=== PATIENT | female | born 1940 | race Caucasian/White ===

== ENCOUNTER → 2018-06-05 | Outpatient (CLI) | payer OTHER ==
[~2018-06-05] MED LIST: ACET325 PO; AMLO5 PO; ASPI81CH PO; ASPI81EC PO; ATOR40TA PO; BEANO PO; BISM300CH PO; BUME1 PO; BUME2 PO; BYSTOLIC PO; CALCA500CH PO; CHOL10002 PO; Cipro500 MG PO; Cranberry500 MG PO; FISH1000 PO; FURO40 PO; FURO80 PO; Flovent Diskus50 MCG; Gas-X125 MG PO; INS70/30PN SC; INS70/30PN SUBQ; INSULANPEN SC; LOPE2C PO; LORA1SY; Lantus100 UNIT/1 SC; METF500 PO; METO100ER PO; METO5A PO; MULT50L PO; MULVITMIND; MULVITMIND PO; NAPR500 PO; Novolin R100 UNIT/M; OMEP20ER PO; PHENY100ER PO; PIOG15 PO; POLY17UD PO; POTA10T PO; POTCHL10ER PO; PRAV20 PO; PRAV40 PO; PRIMATENE MIST; PROACE100 PO; PYRI100 PO; Prilosec20 MG PO; QVAR REDIHALE10.6 G1 IH; SIME80CH PO; TRAM50 PO; VALS80 PO; [UNRECOGNIZED DRUG - OTHER] PO
[2018-06-05 10:21] LABS: Source, Urine Catheter
[2018-06-05 11:05] LABS: Bilirubin, Urine Neg (Neg); Blood, Urine 1+ (Neg); Glucose Qualitative, Urine Neg (Neg); Ketones, Urine Neg (Neg); Leukocyte Esterase, Urine 3+ (Neg); Nitrite, Urine Neg (Neg); Protein, Urine Neg (Neg); Specific Gravity, Urine 1.015 (1.003-1.022); Urobilinogen, Urine NORM (Normal)
[2018-06-05 11:07] LABS: Appearance, Urine Hazy (Clear); Color, Urine Yellow (P-Yellow)
[2018-06-05 11:21] LABS: Bacteria Few /hpf; Red Blood Cells, Urine TNTC /hpf (0-2); Squamous Epithelial Cells Not Seen /hpf (Few); Yeast/Fungi Urine Mod /hpf
== END | disposition home or self-care (01) ==
LOC: LAB 10:19 → LAB SHORT 10:19
PROVIDERS: Family Medicine
DX: N39.0 Urinary tract infection, site not specified (principal)
CPT/HCPCS: 81001; 87086

== ENCOUNTER → 2018-07-02 | Outpatient (CLI) | payer OTHER ==
[2018-07-02 10:53] LABS: Source, Urine Catheter
[2018-07-02 11:00] LABS: Bilirubin, Urine Neg (Neg); Blood, Urine 1+ (Neg); Glucose Qualitative, Urine Neg (Neg); Ketones, Urine Neg (Neg); Leukocyte Esterase, Urine 1+ (Neg); Nitrite, Urine Neg (Neg); Protein, Urine Neg (Neg); Urobilinogen, Urine NORM (Normal)
[2018-07-02 11:09] LABS: Appearance, Urine Clear (Clear); Color, Urine Yellow (P-Yellow)
[2018-07-02 11:11] LABS: Bacteria Rare /hpf; Red Blood Cells, Urine 0-2 /hpf (0-2); Squamous Epithelial Cells Mod /hpf (Few)
== END | disposition home or self-care (01) ==
LOC: LAB 10:52 → LAB SHORT 10:52
PROVIDERS: Family Medicine
DX: N39.0 Urinary tract infection, site not specified (principal)
CPT/HCPCS: 81001; 87077; 87086; 87186

== ENCOUNTER 2018-07-14 15:26 | Emergency (ER) | payer OTHER ==
[~2018-07-14] VITALS: Ht 172.7 cm; Wt 136.1 kg
[~2018-07-14 15:26] MED LIST changes: -Gas-X125 MG PO; -LORA1SY; -QVAR REDIHALE10.6 G1 IH
[2018-07-14] MEDS ORDERED: Gas-X125 MG PO (15:41)
[2018-07-14] MEDS ORDERED: LORA1SY (15:45)
[2018-07-14] MEDS ORDERED: QVAR REDIHALE10.6 G1 IH (15:46)
== END 2018-07-14 17:27 | disposition left against medical advice (07) ==
LOC: ER 15:26
DX: M25.552 Pain in left hip (principal); M54.9 Dorsalgia, unspecified; W18.30XA Fall on same level, unspecified, initial encounter; Z88.8 Allergy status to other drugs, medicaments and biological substances; Z91.012 Allergy to eggs; Z88.1 Allergy status to other antibiotic agents; Z79.899 Other long term (current) drug therapy; Z79.82 Long term (current) use of aspirin; Z79.4 Long term (current) use of insulin; I11.0 Hypertensive heart disease with heart failure; I50.9 Heart failure, unspecified; E11.9 Type 2 diabetes mellitus without complications; D64.9 Anemia, unspecified; E78.5 Hyperlipidemia, unspecified; K21.9 Gastro-esophageal reflux disease without esophagitis
CPT/HCPCS: 99283

== ENCOUNTER 2018-09-01 16:22 | Emergency (ER) | payer OTHER ==
[~2018-09-01] VITALS: Ht 172.7 cm; Wt 137.4 kg
[~2018-09-01 16:22] MED LIST changes: +Gas-X125 MG PO; +LORA1SY; +QVAR REDIHALE10.6 G1 IH
[2018-09-01 17:03] LABS: BASOPHILS ABSOLUTE AUTO 0.03 K/mm3 (0.00-0.23); BASOPHILS PERCENT AUTO 0 % (0-2); EOSINOPHILS ABSOLUTE AUTO 0.34 K/mm3 (0.00-0.68); EOSINOPHILS PERCENT AUTO 4 % (0-6); Hematocrit 32.5 % (33.0-51.0); Hemoglobin 10.6 g/dL (11.5-16.0); IMMATURE GRAN ABSOLUTE AUTO 0.09 K/mm3 (0.00-0.10); IMMATURE GRAN PERCENT AUTO 1 % (0-1); LYMPHOCYTES ABSOLUTE AUTO 1.69 K/mm3 (0.84-5.20); LYMPHOCYTES PERCENT AUTO 18 % (21-46); MONOCYTES ABSOLUTE AUTO 0.99 K/mm3 (0.16-1.47); MONOCYTES PERCENT AUTO 11 % (4-13); Mean Corpuscular HGB 31.2 pg (26.0-34.0); Mean Corpuscular HGB Conc 32.6 g/dL (31.5-36.5); Mean Corpuscular Volume 96 fL (80-100); Mean Platelet Volume 10.4 fL (9.1-12.4); NEUTROPHILS ABSOLUTE AUTO 6.15 K/mm3 (1.96-9.15); NEUTROPHILS PERCENT AUTO 66 % (41-73); Platelet Count 205 K/mm3 (150-400); RDW Coefficient Variation 13.1 % (11.7-14.2); RDW Standard Deviation 46.4 fL (35.1-46.3); White Blood Cell Count 9.29 K/mm3 (4.00-11.30)
[2018-09-01 17:19] LABS: Alanine Aminotransfer (ALT/SGP 14 U/L (12-78); Albumin, Blood 2.7 g/dL (3.4-5.0); Albumin/Globulin Ratio 0.6 (0.8-1.8); Alk Phos 181 U/L (50-136); Anion Gap 4 mmol/L (6-16); Aspartate Aminotrans (AST/SGOT 15 U/L (12-37); Bilirubin, Total 0.3 mg/dL (0.1-1.0); Blood Urea Nitrogen 14 mg/dL (8-24); Bun/Creatinine Ratio 22.9 (12.0-20.0); CO2, Blood 33 mmol/L (21-32); Calcium, Blood 8.4 mg/dL (8.5-10.1); Chloride, Blood 96 mmol/L (98-108); Creatinine, Blood 0.61 mg/dL (0.40-1.00); Globulin, Blood 4.5 g/dL (2.2-4.0); Glomerular Filtration Rate >60 (60-); Glucose, Blood 204 mg/dL (70-99); Potassium, Blood 4.9 mmol/L (3.5-5.5); Sodium, Blood 133 mmol/L (136-145); Total Protein, Blood 7.2 g/dL (6.4-8.2)
[2018-09-01 18:26] LABS: Influenza A Negative (NEGATIVE); Influenza B Negative (NEGATIVE)
[2018-09-01] MEDS ORDERED: LEVO750 PO (18:30)
== END 2018-09-01 20:15 | disposition home or self-care (01) ==
LOC: ER 16:22
PROVIDERS: Emergency Medicine
DX: J18.1 Lobar pneumonia, unspecified organism (principal); Z88.8 Allergy status to other drugs, medicaments and biological substances; Z91.012 Allergy to eggs; Z88.1 Allergy status to other antibiotic agents; Z88.0 Allergy status to penicillin; Z79.899 Other long term (current) drug therapy; Z88.6 Allergy status to analgesic agent; Z79.82 Long term (current) use of aspirin; Z79.4 Long term (current) use of insulin; I11.0 Hypertensive heart disease with heart failure; I50.9 Heart failure, unspecified; E10.9 Type 1 diabetes mellitus without complications; D64.9 Anemia, unspecified; K21.9 Gastro-esophageal reflux disease without esophagitis
CPT/HCPCS: 36415; 71046; 80053; 83880; 85025; 87804; 93005; 93010; 99284-25

== ENCOUNTER 2018-10-01 14:51 | Emergency (ER) | payer OTHER ==
[~2018-10-01] VITALS: Ht 172.7 cm; Wt 136.1 kg
[~2018-10-01 14:51] MED LIST changes: +LEVO750 PO
[2018-10-01 15:32] LABS: Source, Urine Clean Catch
[2018-10-01] MEDS ORDERED: GUAI600T33 PO (15:34)
[2018-10-01] MEDS ORDERED: Milk Of Ma400 MG/5 M PO (15:34)
[2018-10-01] MEDS ORDERED: Calmoseptine Oi71 GM TP (15:35)
[2018-10-01] MEDS ORDERED: TUMS500 MG PO (15:36)
[2018-10-01] MEDS ORDERED: HYDCOR2.5C TOP (15:36)
[2018-10-01] MEDS ORDERED: ALBU2.5V5 NEB (15:36)
[2018-10-01] MEDS ORDERED: BISM87SU PO (15:37)
[2018-10-01] MEDS ORDERED: Refresh Eye Dr1 EACH (15:38)
[2018-10-01] MEDS ORDERED: BUME1 PO (15:38)
[2018-10-01] MEDS ORDERED: LOPE2C PO (15:38)
[2018-10-01 15:39] LABS: Bilirubin, Urine Neg (Neg); Blood, Urine 1+ (Neg); Glucose Qualitative, Urine Neg (Neg); Ketones, Urine Neg (Neg); Leukocyte Esterase, Urine 3+ (Neg); Nitrite, Urine Pos (Neg); Protein, Urine 1+ (Neg); Urobilinogen, Urine NORM (Normal)
[2018-10-01] MEDS ORDERED: CYAN500 PO (15:39)
[2018-10-01] MEDS ORDERED: TRAM50 PO (15:39)
[2018-10-01] MEDS ORDERED: SIME80CH PO (15:39)
[2018-10-01] MEDS ORDERED: INSULANPEN (15:40)
[2018-10-01] MEDS ORDERED: POTCHL10ER PO (15:40)
[2018-10-01] MEDS ORDERED: DEEP SEA44 ML NS (15:41)
[2018-10-01 15:44] LABS: BASOPHILS ABSOLUTE AUTO 0.04 K/mm3 (0.00-0.23); BASOPHILS PERCENT AUTO 0 % (0-2); EOSINOPHILS ABSOLUTE AUTO 0.32 K/mm3 (0.00-0.68); EOSINOPHILS PERCENT AUTO 3 % (0-6); Hematocrit 34.4 % (33.0-51.0); Hemoglobin 10.9 g/dL (11.5-16.0); IMMATURE GRAN ABSOLUTE AUTO 0.11 K/mm3 (0.00-0.10); IMMATURE GRAN PERCENT AUTO 1 % (0-1); LYMPHOCYTES ABSOLUTE AUTO 2.23 K/mm3 (0.84-5.20); LYMPHOCYTES PERCENT AUTO 23 % (21-46); MONOCYTES ABSOLUTE AUTO 0.74 K/mm3 (0.16-1.47); MONOCYTES PERCENT AUTO 8 % (4-13); Mean Corpuscular HGB Conc 31.7 g/dL (31.5-36.5); Mean Corpuscular Volume 98 fL (80-100); NEUTROPHILS ABSOLUTE AUTO 6.28 K/mm3 (1.96-9.15); NEUTROPHILS PERCENT AUTO 65 % (41-73); RDW Coefficient Variation 13.2 % (11.7-14.2); RDW Standard Deviation 47.1 fL (35.1-46.3); Red Blood Cell Count 3.52 M/mm3 (3.80-5.20); White Blood Cell Count 9.72 K/mm3 (4.00-11.30)
[2018-10-01 15:55] LABS: Appearance, Urine Cloudy (Clear); Color, Urine Yellow (P-Yellow)
[2018-10-01 15:56] LABS: Bacteria Many /hpf; Squamous Epithelial Cells Few /hpf (Few); Transitional Epithelial Cells Few /hpf (0-Rare); White Blood Cells, Urine TNTC /hpf (0-5)
[2018-10-01 16:05] LABS: Mean Platelet Volume 10.9 fL (9.1-12.4); Platelet Count 186 K/mm3 (150-400)
[2018-10-01 16:09] LABS: Alanine Aminotransfer (ALT/SGP 14 U/L (12-78); Albumin, Blood 2.6 g/dL (3.4-5.0); Albumin/Globulin Ratio 0.6 (0.8-1.8); Alk Phos 186 U/L (50-136); Anion Gap 4 mmol/L (6-16); Aspartate Aminotrans (AST/SGOT 14 U/L (12-37); Bilirubin, Total 0.2 mg/dL (0.1-1.0); Blood Urea Nitrogen 13 mg/dL (8-24); CO2, Blood 31 mmol/L (21-32); Calcium, Blood 8.6 mg/dL (8.5-10.1); Chloride, Blood 104 mmol/L (98-108); Creatinine, Blood 0.69 mg/dL (0.40-1.00); Globulin, Blood 4.6 g/dL (2.2-4.0); Glomerular Filtration Rate >60 (60-); Glucose, Blood 186 mg/dL (70-99); Potassium, Blood 4.7 mmol/L (3.5-5.5); Sodium, Blood 139 mmol/L (136-145); Total Protein, Blood 7.2 g/dL (6.4-8.2); Troponin I <0.015 ng/mL (0.000-0.040)
[2018-10-02] MEDS ORDERED: CEFD300 PO (09:09)
== END 2018-10-01 19:06 | disposition home or self-care (01) ==
LOC: ER 14:51
PROVIDERS: Emergency Medicine
DX: R05 Cough (principal); N39.0 Urinary tract infection, site not specified; I11.0 Hypertensive heart disease with heart failure; I50.9 Heart failure, unspecified; D64.9 Anemia, unspecified; E11.9 Type 2 diabetes mellitus without complications; K21.9 Gastro-esophageal reflux disease without esophagitis; Z79.899 Other long term (current) drug therapy; Z88.6 Allergy status to analgesic agent; Z88.8 Allergy status to other drugs, medicaments and biological substances; Z91.012 Allergy to eggs; Z79.82 Long term (current) use of aspirin; Z79.4 Long term (current) use of insulin
CPT/HCPCS: 36415; 71046; 80053; 81001; 83690; 84484; 85025; 87077; 87086; 87186; 93005; 93010; 96365; 99284-25; J0696

== ENCOUNTER → 2019-03-31 | Outpatient (CLI) | payer OTHER ==
[~2019-03-31] MED LIST changes: +ALBU2.5V5 NEB; +BISM87SU PO; +CEFD300 PO; +CYAN500 PO; +Calmoseptine Oi71 GM TP; +DEEP SEA44 ML NS; +GUAI600T33 PO; +HYDCOR2.5C TOP; +INSULANPEN; +Milk Of Ma400 MG/5 M PO; +Refresh Eye Dr1 EACH; +TUMS500 MG PO
== END | disposition home or self-care (01) ==
LOC: LAB SHORT 09:50 → LAB 09:50
DX: E11.43 Type 2 diabetes mellitus with diabetic autonomic (poly)neuropathy (principal)
CPT/HCPCS: 82043

== ENCOUNTER → 2019-08-14 | Outpatient (CLI) | payer OTHER ==
[~2019-08-14] MED LIST changes: +CEFP200 PO
[2019-08-14 11:49] LABS: Source, Urine Clean Catch
[2019-08-14 13:00] LABS: Bilirubin, Urine Neg (Neg); Blood, Urine 1+ (Neg); Glucose Qualitative, Urine Neg (Neg); Ketones, Urine Neg (Neg); Leukocyte Esterase, Urine 3+ (Neg); Nitrite, Urine Pos (Neg); Protein, Urine Neg (Neg); Specific Gravity, Urine 1.015 (1.003-1.022); Urobilinogen, Urine NORM (Normal)
[2019-08-14 13:17] LABS: Appearance, Urine Hazy (Clear); Color, Urine Yellow (P-Yellow)
[2019-08-14 13:23] LABS: Amorphous Mod (0-Heavy); Bacteria Many /hpf; Granular Casts 0-2 /lpf (0); Squamous Epithelial Cells Few /hpf (Few)
== END ==
LOC: LAB SHORT 11:47 → LAB 11:47
PROVIDERS: Family Medicine
DX: N39.0 Urinary tract infection, site not specified (principal)
CPT/HCPCS: 81001; 87077; 87086; 87186

== ENCOUNTER 2019-08-17 22:54 | Emergency (ER) | payer OTHER ==
[~2019-08-17] VITALS: Ht 172.7 cm; Wt 136.1 kg
[~2019-08-17 22:54] MED LIST changes: -CEFP200 PO
[2019-08-17] MEDS ORDERED: CEFP200 PO (23:47)
== END 2019-08-18 00:52 | disposition home or self-care (01) ==
LOC: ER 22:54
DX: N39.0 Urinary tract infection, site not specified (principal); Z88.8 Allergy status to other drugs, medicaments and biological substances; Z91.012 Allergy to eggs; Z88.6 Allergy status to analgesic agent; Z88.1 Allergy status to other antibiotic agents; Z79.899 Other long term (current) drug therapy; Z79.4 Long term (current) use of insulin; Z79.82 Long term (current) use of aspirin; I11.0 Hypertensive heart disease with heart failure; E10.9 Type 1 diabetes mellitus without complications; D64.9 Anemia, unspecified; K21.9 Gastro-esophageal reflux disease without esophagitis; I50.9 Heart failure, unspecified
CPT/HCPCS: 99283; A9270-GY

== ENCOUNTER 2019-09-16 13:03 | Emergency (ER) | payer OTHER ==
[~2019-09-16] VITALS: Ht 162.6 cm; Wt 127.0 kg
[~2019-09-16 13:03] MED LIST changes: -ALBU2.5V5 NEB; -ASPI81CH PO; -ATOR40TA PO; -BISM87SU PO; +CEFP200 PO; -Calmoseptine Oi71 GM TP; -Flovent Diskus50 MCG; -HYDCOR2.5C TOP; -Novolin R100 UNIT/M
[2019-09-16] MEDS ORDERED: BASAGLAR K100 UNIT/1 SC (13:24)
[2019-09-16 14:20] LABS: Source, Urine Catheter
[2019-09-16 14:24] LABS: Bilirubin, Urine Neg (Neg); Blood, Urine 5+ (Neg); Glucose Qualitative, Urine Neg (Neg); Ketones, Urine Neg (Neg); Leukocyte Esterase, Urine 3+ (Neg); Nitrite, Urine Neg (Neg); Protein, Urine 2+ (Neg); Specific Gravity, Urine 1.015 (1.003-1.022); Urobilinogen, Urine NORM (Normal)
[2019-09-16 14:32] LABS: Appearance, Urine Hazy (Clear); Color, Urine Yellow (P-Yellow)
[2019-09-16 14:33] LABS: BASOPHILS ABSOLUTE AUTO 0.02 K/mm3 (0.00-0.23); BASOPHILS PERCENT AUTO 0 % (0-2); EOSINOPHILS PERCENT AUTO 0 % (0-6); Hematocrit 31.4 % (33.0-51.0); Hemoglobin 9.3 g/dL (11.5-16.0); IMMATURE GRAN ABSOLUTE AUTO 0.08 K/mm3 (0.00-0.10); IMMATURE GRAN PERCENT AUTO 1 % (0-1); LYMPHOCYTES ABSOLUTE AUTO 1.36 K/mm3 (0.84-5.20); LYMPHOCYTES PERCENT AUTO 14 % (21-46); MONOCYTES ABSOLUTE AUTO 0.78 K/mm3 (0.16-1.47); MONOCYTES PERCENT AUTO 8 % (4-13); Mean Corpuscular HGB 29.5 pg (26.0-34.0); Mean Corpuscular HGB Conc 29.6 g/dL (31.5-36.5); Mean Corpuscular Volume 100 fL (80-100); Mean Platelet Volume 10.9 fL (9.1-12.4); NEUTROPHILS ABSOLUTE AUTO 7.23 K/mm3 (1.96-9.15); NEUTROPHILS PERCENT AUTO 76 % (41-73); Platelet Count 207 K/mm3 (150-400); RDW Coefficient Variation 13.8 % (11.7-14.2); RDW Standard Deviation 50.7 fL (35.1-46.3); Red Blood Cell Count 3.15 M/mm3 (3.80-5.20); White Blood Cell Count 9.47 K/mm3 (4.00-11.30)
[2019-09-16 14:34] LABS: White Blood Cells, Urine 25-50 /hpf (0-5)
[2019-09-16 14:35] LABS: Bacteria Many /hpf; Squamous Epithelial Cells Few /hpf (Few); Yeast/Fungi Urine Many /hpf
[2019-09-16 15:04] LABS: Troponin I <0.015 ng/mL (0.000-0.040)
[2019-09-16 15:06] LABS: Alanine Aminotransfer (ALT/SGP 12 U/L (12-78); Albumin, Blood 2.2 g/dL (3.4-5.0); Albumin/Globulin Ratio 0.5 (0.8-1.8); Alk Phos 130 U/L (50-136); Anion Gap 1 mmol/L (6-16); Aspartate Aminotrans (AST/SGOT 7 U/L (12-37); Bilirubin, Total 0.2 mg/dL (0.1-1.0); Blood Urea Nitrogen 27 mg/dL (8-24); Bun/Creatinine Ratio 35.8 (12.0-20.0); CO2, Blood 37 mmol/L (21-32); Calcium, Blood 8.6 mg/dL (8.5-10.1); Chloride, Blood 98 mmol/L (98-108); Creatinine, Blood 0.76 mg/dL (0.40-1.00); Globulin, Blood 4.5 g/dL (2.2-4.0); Glomerular Filtration Rate >60 (60-); Glucose, Blood 67 mg/dL (70-99); Sodium, Blood 136 mmol/L (136-145); Total Protein, Blood 6.7 g/dL (6.4-8.2)
[2019-09-16] MEDS ORDERED: KEFLEX500 MG PO (15:31)
[2019-09-22] MEDS ORDERED: AMLO5 PO (12:29)
[2019-09-22] MEDS ORDERED: ASPI81CH PO (12:29)
[2019-09-22] MEDS ORDERED: ATOR40TA PO (12:30)
[2019-09-22] MEDS ORDERED: PHENYTOIN SODI100 MG PO (12:34)
[2019-09-22] MEDS ORDERED: VITAMIN D325 MCG PO (12:35)
[2019-09-22] MEDS ORDERED: Flovent Diskus50 MCG (12:36)
[2019-09-22] MEDS ORDERED: Calmoseptine Oi71 GM TOP (12:37)
[2019-09-22] MEDS ORDERED: HYDROCORTISON28.4 G2 TOP (12:38)
[2019-09-22] MEDS ORDERED: ALBU2.5V5 NEB (12:39)
[2019-09-22] MEDS ORDERED: BUME1 PO (12:41)
[2019-09-22] MEDS ORDERED: BISM87SU PO (12:41)
[2019-09-22] MEDS ORDERED: POTCHL10ER PO (12:43)
[2019-09-22] MEDS ORDERED: BASAGLAR K100 UNIT/1 SC (12:43)
[2019-09-22] MEDS ORDERED: OMEP20ER PO (12:43)
[2019-09-22] MEDS ORDERED: BISA10S PR (12:45)
[2019-09-22] MEDS ORDERED: Eq Liquid Anta769 ML PO (12:46)
[2019-09-22] MEDS ORDERED: NOVOLOG FL100 UNIT/1 SC (12:47)
[2019-09-22] MEDS ORDERED: Amoxicillin875 MG PO (13:19)
== END 2019-09-16 17:50 | disposition home or self-care (01) ==
LOC: ER 13:03
PROVIDERS: Emergency Medicine
DX: N39.0 Urinary tract infection, site not specified (principal); I11.0 Hypertensive heart disease with heart failure; I50.9 Heart failure, unspecified; E10.9 Type 1 diabetes mellitus without complications; D64.9 Anemia, unspecified; K21.9 Gastro-esophageal reflux disease without esophagitis; Z88.6 Allergy status to analgesic agent; Z91.012 Allergy to eggs; Z88.1 Allergy status to other antibiotic agents; Z88.8 Allergy status to other drugs, medicaments and biological substances; Z79.899 Other long term (current) drug therapy; Z79.82 Long term (current) use of aspirin; Z79.4 Long term (current) use of insulin; Z79.51 Long term (current) use of inhaled steroids
CPT/HCPCS: 36415; 71045; 80053; 81001; 83880; 84484; 85025; 87077; 87086; 87186; 93005; 93010; 96374; 99285-25; J0696